=== PATIENT | female | born 1980 | race American Indian/Alaskan Native ===

== ENCOUNTER 2021-08-11 18:45 | Emergency (ER) | payer MEDICAID, OTHER ==
--- NOTE | 2021-08-11 20:31 | EDM.PDOC ---
ED HPI GENERAL MEDICAL PROBLEM - General Stated Complaint: 98.5* TEMP, HARD TO BREATH, COUGHING, HEAD ACHE, Time Seen by Provider: 08/11/21 20:30 Source of Information: Reports: Patient, RN, RN Notes Reviewed History Limitations: Reports: No Limitations - History of Present Illness INITIAL COMMENTS - FREE TEXT/NARRATIVE: Corina is a 41 y/o female who presents to the ED via personal vehicle with complaints of cough and shortness of breath. The patient reports her symptoms started two days ago and have progressively worsened in that time. Additionally, she reports headache and chest tenderness with deep inspiration or cough. She has been taking DayQuil for her symptoms. She denies fever, shaking chills, palpitations, dyspepsia, nausea, vomiting, or abdominal pain. She denies history of tobacco, alcohol, or recreational drug use. She denies history of asthma or COPD. Throat Pain Score (Numeric/FACES): 5 - Related Data Allergies Allergy/AdvReac Type Severity Reaction Status Date / Time No Known Allergies Allergy Verified 08/11/21 20:43 ED ROS GENERAL - Review of Systems Review Of Systems: Comprehensive ROS is negative, except as noted in HPI. ED EXAM, GENERAL - Physical Exam Exam: See Below Exam Limited By: No Limitations General Appearance: Alert, No Apparent Distress Eye Exam: Bilateral Eye: EOMI, Normal Inspection, PERRL (3mm) Ears: Normal External Exam, Normal Canal, Hearing Grossly Normal, Normal TMs Ear Exam: Bilateral Ear: Auricle Normal, Canal Normal, TM normal Nose: Normal Inspection, Normal Mucosa, No Blood Throat/Mouth: Normal Voice, No Airway Compromise, Inflammation (Posterior erythema). No: Normal Oropharynx Head: Atraumatic, Normocephalic Neck: Normal Inspection, Supple, Non-Tender, Full Range of Motion. No: Lymphadenopathy (L), Lymphadenopathy (R) Respiratory/Chest: No Accessory Muscle Use, Chest Non-Tender (To palpation), Wheezing (Inspiratory and expiratory to bilateral upper lobes). No: Crackles, Rales, Rhonchi, Stridor Cardiovascular: Normal Peripheral Pulses, Regular Rate, Rhythm, No Edema, No Gallop, No JVD, No Murmur, No Rub, Tachycardia Peripheral Pulses: 2+: Radial (L), Radial (R) GI/Abdominal: Normal Bowel Sounds, Soft (Female) Exam: Deferred Rectal (Female) Exam: Deferred Back Exam: Normal Inspection, Full Range of Motion Extremities: Normal Inspection, Normal Range of Motion Neurological: Alert, Oriented, CN II-XII Intact, Normal Cognition, Normal Gait, No Motor/Sensory Deficits Psychiatric: Normal Affect, Normal Mood Skin Exam: Warm, Dry, Intact, Normal Color, No Rash. No: Cyanosis, Jaundice, Mottled, Pallor Course - Vital Signs Last Recorded V/S: Last Vital Signs Temp 97.6 F 08/11/21 22:55 Pulse 104 H 08/11/21 22:55 Resp 18 08/11/21 22:55 BP 120/87 08/11/21 22:55 Pulse Ox 94 L 08/11/21 22:55 - Orders/Labs/Meds Labs: Laboratory Tests 08/11/21 08/11/21 08/11/21 Range/Units 19:13 21:18 21:18 WBC 9.0 (5.0-10.0) 10^3/uL RBC 5.02 (4.2-5.4) 10^6/uL Hgb 13.8 (12.0-16.0) g/dL Hct 42.2 (37.0-47.0) % MCV 84.1 (80-100) fL MCH 27.5 (27.0-34.0) pg MCHC 32.7 L (33.0-35.0) g/dL Plt Count 257 (150-450) 10^3/uL Neut % (Auto) 77.4 H (42.2-75.2) % Lymph % (Auto) 15.0 L (20.5-50.1) % Keith % (Auto) 6.7 (2-8) % Eos % (Auto) 0.7 L (1.0-3.0) % Baso % (Auto) 0.2 (0.0-1.0) % Lactic Acid 1.1 (0.4-2.0) mmol/L SARS-CoV-2 RNA (JESSICA) Negative (NEGATIVE) Meds: Medications Discontinued Medications Generic Name Dose Route Start Last Admin Trade Name Freq PRN Reason Stop Dose Admin Albuterol/Ipratropium 3 ml 08/11/21 20:58 08/11/21 21:05 Albuterol/Ipratropium 3.0-0.5 Mg/3 Ml Neb Soln NEB 08/11/21 20:59 3 ml ONETIME ONE Administration Methylprednisolone Sodium Succinate 125 mg 08/11/21 20:58 08/11/21 21:05 Methylprednisolone Sodium Succinate 125 Mg/2 Ml Sdv IM 08/11/21 20:59 125 mg ONETIME ONE Administration Promethazine HCl/Codeine 5 ml 08/11/21 21:36 08/11/21 21:42 Codeine/Promethazine 10-6.25 Mg/5 Ml Syrup 5 Ml Ud Cup PO 08/11/21 21:37 5 ml ONETIME ONE Administration - Radiology Interpretation Free Text/Narrative:: [facility] Final Radiology Report Call: [phone] assistance Online chat: [email or web address] Name: CORINA PARK Age: 41Years F Date: 08/11/2021 SSN: -- : [id number] Study: CR CHEST 2V Requesting Physician: Vilma Medeiros Images: 2 Addl Studies: Provided Clinical History: SOB; Inspiratory/Ex wheezes upper lobes Contrast: Contrast Medium: Contrast Amount: Contrast Method: CONFIDENTIALITY STATEMENT This report is intended only for use by the referring physician, and only in accordance with law. If you received this in error, call [phone]. Page 1 of 1 PROCEDURE INFORMATION: Exam: XR Chest Exam date and time: 08/11/2021 9:48 PM Age: 41 years old Clinical indication: Other: No HX of asthma or copd--covid neg; Additional info: SOB; Inspiratory/ex wheezes upper lobes TECHNIQUE: Imaging protocol: XR of the chest. Views: 2 views. COMPARISON: No relevant prior studies available. FINDINGS: Lungs: Unremarkable. No consolidation. Pleural spaces: Unremarkable. No pleural effusion. No pneumothorax. Heart/Mediastinum: Unremarkable. No cardiomegaly. Bones/joints: Age appropriate. IMPRESSION: Normal chest radiography. Thank you for allowing us to participate in the care of your patient. Dictated and Authenticated by: Myles Montemayor MD 08/11/2021 10:27 PM Central Time ([place] & [place]) - Re-Assessments/Exams Free Text/Narrative Re-Assessment/Exam: 08/11/21 COVID sent. Labs and CXR pending. Codeine-promethazine administered for cough. Solu-medrol 125mg IVP and DuoNeb administered for wheezing. Findings of examination, lab work, and imaging reviewed with patient. Will treat cough with codeine-promethazine. Supportive cares for cough discussed. Patient instructed to follow up with primary care provider regarding todays visit. Red flag signs and symptoms which would warrant immediate reevaluation reviewed. Patient verbalized understanding and agreement with the plan of care. Departure - Departure Time of Disposition: 22:43 Disposition: Home, Self-Care 01 Condition: Good Clinical Impression: Cough, Upper respiratory infection, acute - Discharge Information *PRESCRIPTION DRUG MONITORING PROGRAM REVIEWED*: Not Applicable *COPY OF PRESCRIPTION DRUG MONITORING REPORT IN PATIENT DELMIS: Not Applicable Instructions: Cough, Adult, Viral Respiratory Infection Forms: ED Department Discharge Additional Instructions: Rx: codeine-promethazine 1.) Continue with supportive cares for your cold-symptoms, including hot steamy showers and humidified air. 2.) Follow up with your primary care provider regarding today's visit in 5-7 days, sooner should symptoms worsen despite medications. Sepsis Event Note (ED) - Focused Exam Vital Signs: Vital Signs Temp Pulse Resp BP Pulse Ox 08/11/21 22:55 97.6 F 104 H 18 120/87 94 L 08/11/21 19:13 109 H 95
[2021-08-11] MEDS ORDERED: Albuterol/Ipratropium 3.0-0.5 MG/3 ML Neb Soln NEB ONE (20:58)
[2021-08-11] MEDS ORDERED: methylPREDNISolone Sodium Succinate 125 MG/2 ML SDV IM ONE (20:58)
[2021-08-11] MEDS ORDERED: Codeine/Promethazine 10-6.25 MG/5 ML Syrup 5 ML UD Cup PO ONE (21:36)
--- NOTE | 2021-08-11 22:28 | CR ---
PROCEDURE INFORMATION: Exam: XR Chest Exam date and time: 08/11/2021 9:48 PM Age: 41 years old Clinical indication: Other: No HX of asthma or copd--covid neg; Additional info: SOB; Inspiratory/ex wheezes upper lobes TECHNIQUE: Imaging protocol: XR of the chest. Views: 2 views. COMPARISON: No relevant prior studies available. FINDINGS: Lungs: Unremarkable. No consolidation. Pleural spaces: Unremarkable. No pleural effusion. No pneumothorax. Heart/Mediastinum: Unremarkable. No cardiomegaly. Bones/joints: Age appropriate. IMPRESSION: Normal chest radiography.
== END 2021-08-11 22:55 | disposition home or self-care (01) ==
LOC: DL.ED 18:45
DX: J06.9 Acute upper respiratory infection, unspecified (principal); Z20.822 Contact with and (suspected) exposure to COVID-19
CPT/HCPCS: 36415; 71046; 83605; 85025; 87635; 96372; 99285; A9270; J2930; J7620-GY; U0002

== ENCOUNTER 2021-08-15 17:02 | Emergency (ER) | payer SELFPAY | END 2021-08-15 20:10 | disposition left against medical advice (07) | LOC: DL.ED 17:02 | DX: H92.09 Otalgia, unspecified ear (principal); Z53.21 Procedure and treatment not carried out due to patient leaving prior to being seen by health care provider ==